=== PATIENT | male | born 2000 | race Two or more races ===

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

== ENCOUNTER 2022-01-04 13:31 | Inpatient (IN) | payer MEDICAID, SELFPAY ==
[2022-01-04 13:32] VITALS: BP 155/93; PULSE 117; RESP 18; TEMP 36.4; O2SAT 100; BMI 23.6
--- NOTE | 2022-01-04 13:49 | EDS_ITS ---
HPI History of Present Illness Chief Complaint: Substance Abuse Narrative Narrative: 21-year-old male presenting for detox from fake Percocet. He states he does not believe his fentanyl because has had fentanyl before and it was a lot stronger. He cannot be sure however. He says he does not do heroin. He only does this pill. He denies other drugs or alcohol. He states he had nausea and generalized fatigue. He also complains of insomnia and wakes up every 5 minutes. PFSH PFSH Medical History Substance abuse Vapes nicotine containing substance Medical History no medical history Home Medications NK 01/04/22 [History Last Taken Unknown] Allergy/AdvReac Type Severity Reaction Status Date / Time No Known Allergies Allergy Verified 01/04/22 13:33 Social History Smoking Status: Never smoker ROS ROS ED ROS Narrative Generalized fatigue Constitutional Constitutional ED: Denies chills or fever(s) Eyes Eyes: Denies blurry vision or diplopia ENT ENT ED: Denies rhinorrhea or sore throat Cardiovascular Cardiovascular: Denies chest pain or palpitations Respiratory/Chest Respiratory/Chest: Denies cough or dyspnea Gastrointestinal Gastrointestinal: Reports nausea and vomiting Genitourinary Genitourinary ED: Denies dysuria or urinary frequency Integumentary Denies abscess or rash Neurologic Neurologic: Denies headache(s), paresthesias or weakness Psychiatric Psychiatric: Denies anxiety or depression EXAM Physical Exam Const Vital Signs: 01/04/22 13:32 Temperature 97.5 F L Temperature Source Temporal Pulse Rate 117 H Respiratory Rate 18 Blood Pressure 155/93 H Blood Pressure Mean 113 Pulse Ox 100 Oxygen Delivery Method Room Air Positive well nourished General Appearance ED: NAD; Negative for pallor HEENT Reports moist mucous membranes atraumatic Eyes PERRL and EOMs intact bilaterally Chest Wall inspection of chest normal and palpation of chest normal Resp normal respiratory effort and clear to auscultation bilaterally Neuro oriented x3 Sensorium / Orientation: alert Psych mental status grossly normal and thought process normal Skin General Skin Exam: Negative for jaundice or pallor MDM MDM MDM Narrative Medical decision making narrative: Patient presenting for detox. He believes when he is taken is an opioid he is unsure if it is fentanyl. He does not use heroin specifically. He does not drink alcohol. Patient states his symptoms are insomnia, nausea/vomiting, fatigue. CBC and CMP are unremarkable. EtOH negative. Urine drug screen positive for cannabinoids. Patient discussed with hospitalist for admission for opioid detox. Impression: 1. Opioid abuse 2. Request for opioid use Lab Data Labs: Laboratory Results - last 24 hr 01/04/22 01/04/22 01/04/22 14:04 14:04 14:04 WBC 8.7 RBC 4.86 Hgb 14.7 Hct 40.5 MCV 83.3 MCH 30.2 MCHC 36.3 H RDW Std Deviation 37.4 RDW Coeff of Chelsey 12.3 Plt Count 294 MPV 10.7 Immature Gran % (Auto) 0.300 Neut % (Auto) 87.7 H Lymph % (Auto) 9.7 L [place] % (Auto) 2.2 Eos % (Auto) 0.0 Baso % (Auto) 0.1 Absolute Neuts (auto) 7.6 Absolute Lymphs (auto) 0.84 Nucleated RBC % 0 Sodium 136 Potassium 3.5 Chloride 104 Carbon Dioxide 23.0 Anion Gap 9 BUN 16 Creatinine 1.05 Estim Creat Clear Calc 119.52 Est GFR (MDRD) Af Amer 115 Est GFR (MDRD) Non-Af 95 BUN/Creatinine Ratio 15.2 Glucose 140 H Calcium 9.2 Total Bilirubin 0.60 AST 19 ALT 41 Alkaline Phosphatase 103 Total Protein 8.3 H Albumin 4.4 Globulin 3.9 Albumin/Globulin Ratio 1.1 Urine Opiates Screen Urine Methadone Screen Ur Barbiturates Screen Ur Phencyclidine Scrn Ur Amphetamines Screen U Methamphetamin-MDMA U Benzodiazepines Scrn Urine Cocaine Screen U Cannabinoids Screen Ur Drug Screen Comment Ethyl Alcohol 3.0 01/04/22 14:11 WBC RBC Hgb Hct MCV MCH MCHC RDW Std Deviation RDW Coeff of Chelsey Plt Count MPV Immature Gran % (Auto) Neut % (Auto) Lymph % (Auto) [place] % (Auto) Eos % (Auto) Baso % (Auto) Absolute Neuts (auto) Absolute Lymphs (auto) Nucleated RBC % Sodium Potassium Chloride Carbon Dioxide Anion Gap BUN Creatinine Estim Creat Clear Calc Est GFR (MDRD) Af Amer Est GFR (MDRD) Non-Af BUN/Creatinine Ratio Glucose Calcium Total Bilirubin AST ALT Alkaline Phosphatase Total Protein Albumin Globulin Albumin/Globulin Ratio Urine Opiates Screen NEGATIVE Urine Methadone Screen NEGATIVE Ur Barbiturates Screen NEGATIVE Ur Phencyclidine Scrn NEGATIVE Ur Amphetamines Screen NEGATIVE U Methamphetamin-MDMA NEGATIVE U Benzodiazepines Scrn NEGATIVE Urine Cocaine Screen NEGATIVE U Cannabinoids Screen POSITIVE H Ur Drug Screen Comment Ethyl Alcohol Discharge Plan Triage Chief Complaint: Substance Abuse ED Provider: Yves Phillips Dx/Rx/DC Orders Prescriptions: No Action NK RF: 0 Primary Care Provider: Kerry Perez
--- NOTE | 2022-01-04 14:16 | CM.ED ---
DONNIE Note Referral Source: [facility] Referral Reason: SUSIE FIELDS met with patient in his room. Patient gave verbal consent for this gag writer to speak to him in the presence of his mother in the room. Patient said that he is at the hospital for withdrawal and detox. Patient said that he is withdrawing from fake Percocet. Patient said that he thought they were real Percocet. SW asked patient why he feels he was taking fake percocet and patient said because of how he was feeling in regards to detox. Patient's mother said that patient had also said that there was fake percocet being sold. Patient reports last use was 1 1/2 days ago. Patient reports that he used 3-4 10's a day. Patient's mother reports patient has been using for over a year. Patient has no current AOD counselor or treatment. Patient reports that this is his first detox or treatment experience. Patient said that he was advised of the rules of the [facility] program and was in agreement with the rules. DONNIE called Esteban Baig and left voice mail message for her advising of admission. Plan: SUSIE SAUCEDA
[2022-01-04 14:17] LABS: Absolute Lymphocyte Count 0.84 X10^3/uL (0.83-4.51); Absolute Neutrophil Count 7.6 X10^3/uL (2.0-7.7); Basophil# 0.01 X10^3/uL; Basophil% 0.1 % (0-1); Hematocrit 40.5 % (40-54); Hemoglobin 14.7 g/dL (13.0-16.5); Lymphocyte # 0.84 X10^3/ul (0.83-4.51); Lymphocyte % 9.7 % (19-41); Mean Corp Hgb Conc 36.3 g/dL (32-36); Mean Corpuscular Hgb 30.2 pg (27.0-32.0); Mean Corpuscular Volume 83.3 fL (80-94); Mean Platelet Vol. 10.7 fl (6.2-12.0); Monocyte# 0.19 X10^3/uL; Monocyte% 2.2 % (0-10); NRBC Flagged by Analyzer 0 % (0-5); Neutrophil # 7.59 X10^3/uL (2.7-7.7); Neutrophil % 87.7 % (47-70); Platelet Count 294 K/mm3 (150-450); RBC Distribution Width CV 12.3 % (11.6-14.6); RBC Distribution Width SD 37.4 fl (35.1-43.9); Red Blood Count 4.86 M/mm3 (4.6-6.2); White Blood Count 8.7 K/mm3 (4.4-11.0)
[2022-01-04 14:30] LABS: ALB/GLOB Ratio 1.1 RATIO (0.9-2.4); AST(SGOT) 19 U/L (15-37); Alanine Aminotransfer ALT/SGPT 41 U/L (16-61); Albumin, Serum 4.4 g/dL (3.2-5.0); Alkaline Phosphatase 103 U/L (45-117); Anion Gap 9 (5-15); BUN 16 mg/dL (7-18); BUN/Creat Ratio 15.2 RATIO (10-20); Calcium,Total 9.2 mg/dL (8.5-10.1); Chloride 104 mmol/L (98-107); Creatinine, Serum 1.05 mg/dL (0.70-1.30); EST Glomerular Filtration Rate 95 mL/min (>60); Est Glom Filt Rate - Afr Amer 115 mL/min (>60); Estimated Creatinine Clearance 119.52 ml/min; Globulin 3.9 g/dL (2.2-4.2); Glucose 140 mg/dL (74-106); Potassium 3.5 mmol/L (3.5-5.1); Protein, Total 8.3 g/dL (6.4-8.2); Sodium Level 136 mmol/L (136-145)
[2022-01-04 14:54] LABS: Amphetamine Urine VISTA NEGATIVE (<1000 ng/mL); Barbiturate Urine VISTA NEGATIVE (< 200 ng/mL); Benzodiazepine Urine VISTA NEGATIVE (< 200 ng/mL); Cocaine Urine VISTA NEGATIVE (< 300 ng/mL); Ecstacy Urine VISTA NEGATIVE (< 500 ng/mL); Methadone Urine VISTA NEGATIVE (< 300 ng/mL); PCP Urine VISTA NEGATIVE (< 25 ng/mL); THC Urine VISTA POSITIVE (< 50 ng/mL); Vista UDS pH Range 6
[2022-01-04 15:57] VITALS: BP 133/79; PULSE 88; RESP 17; TEMP 36.8; O2SAT 98
--- NOTE | 2022-01-04 16:01 | PCM.HP.STD ---
[facility] - General General Date of Admission: 01/04/22 Date of Service: 01/04/22 Chief Complaint: Opiate detox HPI Narrative NACHO PEPPER, is a 21 M who presented to emergency department was [facility] on 01/04/2022 requesting opiate detox. The patient uses street obtained opiates that he takes 4 to 5 tablets daily. He states he has been doing this for approximately 1 year. He is unclear exactly what substances in these opiate tablets. He is never used any other form of drugs other than marijuana. He has never had a history of IV drug use. He states his current symptoms are nausea and vomiting, diarrhea, anxiety, insomnia, and myalgias. He states his last use was approximately 1.5 days ago. He is never gone through detox before but he does state he feels miserable. His vital signs in emergency department were overall unremarkable other than a slightly elevated blood pressure which I suspect is related to his withdrawal. His CBC was unremarkable. His CMP was unremarkable. His tox screen was only positive for cannabis. He signed [facility] paperwork and will be admitted to [facility] for opiate detox. [facility] Medical History Substance abuse Vapes nicotine containing substance Medical History no medical history Home Medications NK 01/04/22 [History Last Taken Unknown] Allergy/AdvReac Type Severity Reaction Status Date / Time No Known Allergies Allergy Verified 01/04/22 13:33 no significant family history no surgical history Social History (Updated 01/04/22 @ 16:[address] Yesika Potts, DO) Smoking Status: Current every day smoker tobacco type: e-cigarettes alcohol intake: current details: Rarely substance use type: marijuana and opiates ROS Constitutional Constitutional: Reports chills and malaise; Denies anorexia, change in weight, fatigue, fever(s), night sweats, weakness or other Eyes Eyes: Denies blurry vision, change in eye color, change in vision, discharge from eye(s), double vision, erythema, eye pain, loss of vision or other ENT HEENT: Denies abnormal hearing, dysphagia, ear pain, epistaxis, headache(s), hearing loss, nasal congestion, nasal discharge, post nasal drip, sinus pressure, sore throat or other Cardiovascular Cardiovascular: Denies chest pain, claudication, dyspnea on exertion, edema, lightheadedness, orthopnea, palpitations, paroxysmal nocturnal dyspnea, rapid heart rate, syncope or other Respiratory/Chest Respiratory/Chest: Denies cough, dyspnea, excessive phlegm production, hemoptysis, productive cough, shortness of breath at rest, shortness of breath with exertion, wheezing or other Gastrointestinal Gastrointestinal: Reports diarrhea, nausea and vomiting; Denies abdominal pain, coffee ground emesis, constipation, dyspepsia, hematemesis, hematochezia, loose stools, melena or other Genitourinary Genitourinary: Denies burning urination, difficulty urinating, dysuria, hematuria, nocturia, urinary frequency, urinary hesitancy, urinary incontinence, urinary urgency or other Musculoskeletal Musculoskeletal: Reports myalgias; Denies arthralgias, back pain, joint pain, joint stiffness, joint swelling, neck pain or other Neurologic Neurologic: Denies abnormal gait, abnormal speech, confusion, disequilibrium, dizziness, focal weakness, headache(s), numbness, paresthesias, seizure-like activity, seizures, syncope, tingling, tremor(s) or other Psychiatric Psychiatric: Reports anxiety; Denies depression, homicidal ideation, suicidal ideation or other Endocrine Endocrinology: Denies change in body appearance, cold intolerance, excessive sweating, heat intolerance, polydipsia, polyuria or other Hematologic/Lymphatic Hematologic/Lymphatic: Denies anemia, easy bleeding, easy bruising, lymphadenopathy or other Allergic/Immunologic Allergic/Immunologic: Denies rhinitis, hives, eczemia, asthma or other Vital Signs Vital Signs Vital Signs: 01/04/22 13:32 01/04/22 15:57 Temperature 97.5 F L 98.3 F Temperature Source Temporal Temporal Pulse Rate 117 H 88 Respiratory Rate 18 17 Blood Pressure 155/93 H 133/79 H Blood Pressure Mean 113 97 Pulse Ox 100 98 Oxygen Delivery Method Room Air Room Air Weight Weight: 77 kg Body Mass Index (BMI) 23.6 Physical Exam Const alert, oriented x3, no apparent distress, average body habitus, healthy appearing and well nourished Constitutional Narrative: Young -[place]ian male lying in right side-lying in bed, appears nontoxic but uncomfortable with withdrawal symptoms General Appearance: cooperative HEENT normocephalic, head/scalp atraumatic, hearing grossly normal bilaterally and moist oral mucous membranes Resp normal respiratory effort, no retractions, no use of accessory muscles and clear to auscultation bilaterally Auscultation: Negative for crackles, rales, rhonchi or wheezes Cardio regular rate, regular rhythm, S1 normal heart sound, S2 normal heart sound, no murmurs, no rub, no gallops, no clicks and no JVD GI normal to inspection, nondistended, normoactive bowel sounds, soft to palpation, non-tender and non-distended; Negative for hepatosplenomegaly Extremity no clubbing, cyanosis or edema Peripheral Pulses: Yes pulses 2+ throughout Skin no rashes or lesions noted, no wounds, skin turgor normal, no jaundice, no petechiae and no mottling Neuro oriented x3, CN's II-XII intact bilaterally, moves all extremities and no focal motor deficits Sensorium / Orientation: awake and alert Speech: speech normal Motor Exam: strength 5/5 throughout Psych affect normal Mood & Affect: anxious Results Lab / Micro Data Result Diagrams: 01/04/22 14:04 01/04/22 14:04 Labs: Laboratory Results - last 24 hr 01/04/22 14:04: WBC 8.7, RBC 4.86, Hgb 14.7, Hct 40.5, MCV 83.3, MCH 30.2, MCHC 36.3 H, RDW Std Deviation 37.4, RDW Coeff of Chelsey 12.3, Plt Count 294, MPV 10.7, Immature Gran % (Auto) 0.300, Neut % (Auto) 87.7 H, Lymph % (Auto) 9.7 L, [place] % (Auto) 2.2, Eos % (Auto) 0.0, Baso % (Auto) 0.1, Absolute Neuts (auto) 7.6, Absolute Lymphs (auto) 0.84, Nucleated RBC % 0 01/04/22 14:04: Ethyl Alcohol 3.0 01/04/22 14:04: Sodium 136, Potassium 3.5, Chloride 104, Carbon Dioxide 23.0, Anion Gap 9, BUN 16, Creatinine 1.05, Estim Creat Clear Calc 119.52, Est GFR (MDRD) Af Amer 115, Est GFR (MDRD) Non-Af 95, BUN/Creatinine Ratio 15.2, Glucose 140 H, Calcium 9.2, Total Bilirubin 0.60, AST 19, ALT 41, Alkaline Phosphatase 103, Total Protein 8.3 H, Albumin 4.4, Globulin 3.9, Albumin/Globulin Ratio 1.1 01/04/22 14:11: Urine Opiates Screen NEGATIVE, Urine Methadone Screen NEGATIVE, Ur Barbiturates Screen NEGATIVE, Ur Phencyclidine Scrn NEGATIVE, Ur Amphetamines Screen NEGATIVE, U Methamphetamin-MDMA NEGATIVE, U Benzodiazepines Scrn NEGATIVE, Urine Cocaine Screen NEGATIVE, U Cannabinoids Screen POSITIVE H, Ur Drug Screen Comment Assessment & Plan Assessment/Plan (1) Opiate withdrawal: PLAN: Acute opiate withdrawal -Last use was 1.5 days ago -Takes street but tablets but unclear what the substance or dosing is -Patient is having significant withdrawal symptoms -Start buprenorphine taper -Supportive medications -180 consult Tobacco abuse -Patient vapes intermittently -Will make nicotine patch available if needed -Recommend cessation THC abuse -Recommend cessation DVT prophylaxis -Low risk -Early ambulation protocol CODE STATUS -Full code Charges/Coding Visit Charges Inpatient E&M: 51030 Init Hosp L2
[2022-01-04 16:46] VITALS: BMI 23.2
[2022-01-04 17:00] VITALS: BP 140/84; PULSE 72; RESP 16; TEMP 37; O2SAT 98
[2022-01-04] MEDS: Methocarbamol 750 MG Tablet 1500 MG PO (17:08)
[2022-01-04] MEDS: hydrOXYzine PAM 25 MG Capsule 50 MG PO (17:08)
[2022-01-04] MEDS: Ondansetron 8 MG Tablet PO (17:08)
[2022-01-04] MEDS: Dicyclomine 10 MG Capsule 20 MG PO (17:08)
[2022-01-04] MEDS: Buprenorphine HCl 2 MG TAB.SUBL SL (17:09)
[2022-01-04 21:03] VITALS: BP 132/74; PULSE 64; RESP 18; TEMP 36.6; O2SAT 99
[2022-01-04] MEDS: Gabapentin 300 MG Capsule PO (21:13)
[2022-01-04] MEDS: traZODone 100 MG Tablet PO (21:13)
[2022-01-04] MEDS: cloNIDine HCl 0.1 MG Tablet PO (22:22)
--- NOTE | 2022-01-04 22:56 | NURSING ---
Spoke with patients mother to give update.
[2022-01-05 01:13] VITALS: BP 112/73; PULSE 64; RESP 16; TEMP 36.7; O2SAT 99
[2022-01-05] MEDS: Buprenorphine HCl 2 MG TAB.SUBL SL ×3 (01:17→16:56)
[2022-01-05] MEDS: hydrOXYzine PAM 25 MG Capsule 50 MG PO (01:18)
[2022-01-05 04:52] VITALS: BP 122/75; PULSE 63; RESP 14; TEMP 36.7; O2SAT 98
--- NOTE | 2022-01-05 07:32 | PN.HOSP_ITS ---
Objective Data Objective Data Vital Signs: Vital Signs Temp Pulse Resp BP Pulse Ox 98.1 F 63 14 122/75 H 98 01/05/22 04:52 01/05/22 04:52 01/05/22 04:52 01/05/22 04:52 01/05/22 04:52 Oxygen Delivery Method Room Air Weight: 75.659 kg Body Mass Index (BMI) 23.2 Lab / Micro Data Result Diagrams: 01/04/22 14:04 01/04/22 14:04 Labs: Laboratory Results - last 24 hr 01/04/22 14:04: WBC 8.7, RBC 4.86, Hgb 14.7, Hct 40.5, MCV 83.3, MCH 30.2, MCHC 36.3 H, RDW Std Deviation 37.4, RDW Coeff of Chelsey 12.3, Plt Count 294, MPV 10.7, Immature Gran % (Auto) 0.300, Neut % (Auto) 87.7 H, Lymph % (Auto) 9.7 L, [place] % (Auto) 2.2, Eos % (Auto) 0.0, Baso % (Auto) 0.1, Absolute Neuts (auto) 7.6, Absolute Lymphs (auto) 0.84, Nucleated RBC % 0 01/04/22 14:04: Ethyl Alcohol 3.0 01/04/22 14:04: Sodium 136, Potassium 3.5, Chloride 104, Carbon Dioxide 23.0, Anion Gap 9, BUN 16, Creatinine 1.05, Estim Creat Clear Calc 119.52, Est GFR (MDRD) Af Amer 115, Est GFR (MDRD) Non-Af 95, BUN/Creatinine Ratio 15.2, Glucose 140 H, Calcium 9.2, Total Bilirubin 0.60, AST 19, ALT 41, Alkaline Phosphatase 103, Total Protein 8.3 H, Albumin 4.4, Globulin 3.9, Albumin/Globulin Ratio 1.1 01/04/22 14:11: Urine Opiates Screen NEGATIVE, Urine Methadone Screen NEGATIVE, Ur Barbiturates Screen NEGATIVE, Ur Phencyclidine Scrn NEGATIVE, Ur Amphetamines Screen NEGATIVE, U Methamphetamin-MDMA NEGATIVE, U Benzodiazepines Scrn NEGATIVE, Urine Cocaine Screen NEGATIVE, U Cannabinoids Screen POSITIVE H, Ur Drug Screen Comment
--- NOTE | 2022-01-05 07:44 | PN.HOSP_ITS ---
Subjective Subjective Patient is a 21-year-old gentleman with history of polysubstance abuse admitted with acute opioid withdrawal Objective Data Objective Data Vital Signs: Vital Signs Temp Pulse Resp BP Pulse Ox 98.1 F 63 14 122/75 H 98 01/05/22 04:52 01/05/22 04:52 01/05/22 04:52 01/05/22 04:52 01/05/22 04:52 Oxygen Delivery Method Room Air Weight: 75.659 kg Body Mass Index (BMI) 23.2 Lab / Micro Data Result Diagrams: 01/04/22 14:04 01/04/22 14:04 Labs: Laboratory Results - last 24 hr 01/04/22 14:04: WBC 8.7, RBC 4.86, Hgb 14.7, Hct 40.5, MCV 83.3, MCH 30.2, MCHC 36.3 H, RDW Std Deviation 37.4, RDW Coeff of Chelsey 12.3, Plt Count 294, MPV 10.7, Immature Gran % (Auto) 0.300, Neut % (Auto) 87.7 H, Lymph % (Auto) 9.7 L, [place] % (Auto) 2.2, Eos % (Auto) 0.0, Baso % (Auto) 0.1, Absolute Neuts (auto) 7.6, Absolute Lymphs (auto) 0.84, Nucleated RBC % 0 01/04/22 14:04: Ethyl Alcohol 3.0 01/04/22 14:04: Sodium 136, Potassium 3.5, Chloride 104, Carbon Dioxide 23.0, Anion Gap 9, BUN 16, Creatinine 1.05, Estim Creat Clear Calc 119.52, Est GFR (MDRD) Af Amer 115, Est GFR (MDRD) Non-Af 95, BUN/Creatinine Ratio 15.2, Glucose 140 H, Calcium 9.2, Total Bilirubin 0.60, AST 19, ALT 41, Alkaline Phosphatase 103, Total Protein 8.3 H, Albumin 4.4, Globulin 3.9, Albumin/Globulin Ratio 1.1 01/04/22 14:11: Urine Opiates Screen NEGATIVE, Urine Methadone Screen NEGATIVE, Ur Barbiturates Screen NEGATIVE, Ur Phencyclidine Scrn NEGATIVE, Ur Amphetamines Screen NEGATIVE, U Methamphetamin-MDMA NEGATIVE, U Benzodiazepines Scrn NEGATIVE, Urine Cocaine Screen NEGATIVE, U Cannabinoids Screen POSITIVE H, Ur Drug Screen Comment Physical Exam Narrative GENERAL: cooperative HEENT: Atraumatic; EYES; Anicteric, Normal Conjunctiva NECK; supple, normal thyroid, RESPIRATORY: Diminished to auscultation CARDIOVASCULAR: Regular S1 S2, GI: soft, normoactive bowel sounds, : No Renal angle tenderness; EXTREMITIES: No edema, no clubbing, MUSCULOSKELETAL: no muscle wasting NEURO: Awake; no lateralizing signs. SKIN: No Rash PSYCH; Flat affect Assessment & Plan Assessment/Plan (1) Opiate withdrawal: PLAN: Patient is a 21-year-old gentleman with history of polysubstance abuse admitted with acute opioid withdrawal 1. Acute opiate withdrawal -patient has been admitted to regular nursing floor where he is currently being managed with buprenorphine taper 2. THC abuse ?Counseled on cessation 3. Tobacco dependence - Counseled on cessation, offered nicotine patch for tobacco cravings 4. DVT prophylaxis ?Low risk did encourage ambulation Charges/Coding Visit Charges Inpatient E&M: 46110 Subs Hosp L2
[2022-01-05 09:11] VITALS: BP 125/82; PULSE 67; RESP 16; TEMP 36.7; O2SAT 99
[2022-01-05 12:22] VITALS: BP 120/71; PULSE 66; RESP 16; TEMP 36.9; O2SAT 99
--- NOTE | 2022-01-05 12:57 | ADDICTION ---
This specification writer met with PT to conduct ASAM, MSE, AUDIT, DUDIT assessments and to plan for d/c. PT A+Ox4 and participated actively. All assessments completed and placed in PT's chart. PT plans to f/u with individual counselor at [facility] for follow-up counseling services. PT did not indicate a need for transportation post d/c from [facility].
[2022-01-05 16:50] VITALS: BP 129/84; PULSE 76; RESP 16; TEMP 37.3; O2SAT 99
[2022-01-05 20:43] VITALS: BP 120/70; PULSE 60; RESP 16; TEMP 36.7; O2SAT 98
[2022-01-05] MEDS: traZODone 100 MG Tablet PO (20:48)
[2022-01-06 00:32] VITALS: BP 124/65; PULSE 60; RESP 14; TEMP 36.6; O2SAT 97
[2022-01-06] MEDS: Buprenorphine HCl 2 MG TAB.SUBL SL ×3 (00:36→15:57)
[2022-01-06 06:26] VITALS: BP 127/72; PULSE 63; RESP 14; TEMP 36.6; O2SAT 98
--- NOTE | 2022-01-06 07:24 | PCM.PN.HOSP ---
Subjective Subjective Patient seen, symptoms significantly improved. Patient requested discharge. Has a follow-up appointment as outpatient with 180 Objective Data Objective Data Vital Signs: Vital Signs Temp Pulse Resp BP Pulse Ox 97.8 F 63 14 127/72 H 98 01/06/22 06:26 01/06/22 06:26 01/06/22 06:26 01/06/22 06:26 01/06/22 06:26 Oxygen Delivery Method Room Air Weight: 75.659 kg Body Mass Index (BMI) 23.2 Intake & Output: Intake and Output for Last 24 Hours 01/04/22 01/05/22 01/06/22 23:59 23:59 23:59 Intake Total 600 / 600 Balance 600 / 600 Lab / Micro Data Result Diagrams: 01/04/22 14:04 01/04/22 14:04 Physical Exam Narrative GENERAL: cooperative HEENT: Atraumatic; EYES; Anicteric, Normal Conjunctiva NECK; supple, normal thyroid, RESPIRATORY: Diminished to auscultation CARDIOVASCULAR: Regular S1 S2, GI: soft, normoactive bowel sounds, : No Renal angle tenderness; EXTREMITIES: No edema, no clubbing, MUSCULOSKELETAL: no muscle wasting NEURO: Awake; no lateralizing signs. SKIN: No Rash PSYCH; Flat affect Assessment & Plan Assessment/Plan (1) Opiate withdrawal: PLAN: Patient is a 21-year-old gentleman with history of polysubstance abuse admitted with acute opioid withdrawal 1. Acute opiate withdrawal -patient has been admitted to regular nursing floor where he is currently being managed with buprenorphine taper -01/06/2022; Patient seen, symptoms significantly improved. Patient requested discharge. Has a follow-up appointment as outpatient with 2. THC abuse ?Counseled on cessation 3. Tobacco dependence - Counseled on cessation, offered nicotine patch for tobacco cravings 4. DVT prophylaxis ?Low risk did encourage ambulation Charges/Coding Visit Charges Inpatient E&M: 03535 Subs Hosp L2
[2022-01-06 08:47] VITALS: BP 134/69; PULSE 70; RESP 16; TEMP 36.7; O2SAT 98
--- NOTE | 2022-01-06 09:07 | PCM.DC.SUM ---
Providers Date of Admission: 01/04/22 Primary Care Physician: JA Chin Reason For Visit: OPIATE DETOX Diagnosis Discharge Diagnosis (1) Opiate withdrawal: Status: Acute Code(s): F11.23 - Opioid dependence with withdrawal Medications at Discharge Home Medications NK 01/04/22 Hospital Course Summary of Care Provided Hospital Course: Patient is a 21-year-old gentleman with history of polysubstance abuse admitted with acute opioid withdrawal 1. Acute opiate withdrawal -patient has been admitted to regular nursing floor where he is currently being managed with buprenorphine taper -01/06/2022; Patient seen, symptoms significantly improved. Patient requested discharge. Has a follow-up appointment as outpatient with 2. THC abuse ?Counseled on cessation 3. Tobacco dependence - Counseled on cessation, offered nicotine patch for tobacco cravings 4. DVT prophylaxis ?Low risk did encourage ambulation Physical Exam Narrative GENERAL: cooperative HEENT: Atraumatic; EYES; Anicteric, Normal Conjunctiva NECK; supple, normal thyroid, RESPIRATORY: Diminished to auscultation CARDIOVASCULAR: Regular S1 S2, GI: soft, normoactive bowel sounds, : No Renal angle tenderness; EXTREMITIES: No edema, no clubbing, MUSCULOSKELETAL: no muscle wasting NEURO: Awake; no lateralizing signs. SKIN: No Rash PSYCH; Flat affect Weight / BMI Weight Weight: 75.659 kg Body Mass Index (BMI) 23.2 ABG / Lab / Microbiology Data Result Diagrams: 01/04/22 14:04 01/04/22 14:04 D/C Instructions Discharge Diet: No restrictions Discharge Activity: Return to Normal Activity Call your doctor if you observe: Fever of 101 or Higher, Shortness of breath, Fainting spells and Chest pain Meaningful Use Info Meaningful Use Diagnoses (Choose all that apply): None applicable Discharge Plan Admission Admit Date/Time: 01/04/22 15:47 Attending Provider: Branden Aguilar Primary Care Provider: Kerry Perez Discharge Orders/Prescriptions Prescriptions: No Action NK RF: 0 Referrals / Follow Up: Kerry Perez NP-C [Primary Care Provider] - In 1 Week Disposition Disposition (needs filled in before D/C Order can be placed): Home, Self Care Charges/Coding Visit Charges Inpatient E&M: 40964 Disch Hosp
[2022-01-06 14:17] VITALS: BP 129/74; PULSE 64; RESP 16; TEMP 36.4; O2SAT 99
== END 2022-01-06 16:09 | disposition home or self-care (01) | DRG 773 ==
LOC: ED 14:33 → MS3 16:15
PROVIDERS: Admitting Provider Internal Medicine; Emergency Provider Student in an Organized Health Care Education/Training Program; PCP Nurse Practitioner Family; Visit Provider Internal Medicine
DX: F11.23 Opioid dependence with withdrawal (principal); F12.10 Cannabis abuse, uncomplicated; F17.290 Nicotine dependence, other tobacco product, uncomplicated
CPT/HCPCS: 36415; 80053; 80307; 82077; 85025; 99251; 99283; 99406; G0463

== ENCOUNTER 2024-08-10 21:57 | Emergency (ER) | payer MEDICAID, SELFPAY ==
[2024-08-10 21:58] VITALS: BP 164/106; PULSE 115; RESP 20; TEMP 36.1; O2SAT 98; BMI 26.3
[2024-08-10] MEDS: Ibuprofen 600 MG Tablet PO (23:01)
--- NOTE | 2024-08-10 23:10 | RAD_ITS ---
EXAM: XR RIGHT KNEE COMPLETE, 4 OR MORE VIEWS CLINICAL INDICATION: Injury/Pain TECHNIQUE: Four or more views of the right knee. COMPARISON: No relevant prior studies available. FINDINGS: BONES/JOINTS: Unremarkable. No acute fracture. No subluxation. Normal alignment. Preservation of the joint space. No sclerotic or destructive changes observed. SOFT TISSUES: Unremarkable. No soft tissue swelling or gas. No radiopaque foreign body. RAD/Knee 4 or More Views IMPRESSION: Negative right knee x-rays. Electronically Signed: Schuyler Santo MD at 23:35 EDT ,
--- NOTE | 2024-08-10 23:18 | EDS_ITS ---
HPI History of Present Illness Chief Complaint: Lower Extremity Injury Informant: patient Narrative Narrative: Patient is a 24-year-old male with no sniffing past medical history presenting with right knee pain. Patient was playing wrestling with a body yesterday when he was kicked on the inside of his knee and his knee went outwards. He had immediate pain. Initially did have some numbness but that has resolved. He felt a pop. He is continue to have pain throughout the day today so he decided to come in to have it evaluated further. He feels that his knee is swollen. Denies any numbness or tingling at this time. Denies any other injuries. 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 PFSH PFS Medical History Substance abuse Vapes nicotine containing substance Home Medications ?Medication ?Instructions ?Recorded ?Last Taken ?Type NK 01/04/22 Unknown History Allergy/AdvReac Type Severity Reaction Status Date / Time No Known Allergies Allergy Verified 08/10/24 21:58 Social History Smoking Status: Current every day smoker tobacco type: e-cigarettes alcohol intake: current details: Rarely substance use type: marijuana and opiates ROS ROS ED Constitutional Constitutional ED: Denies chills or fever(s) Musculoskeletal Musculoskeletal: Reports other Details: Right knee pain, swelling Integumentary Denies Abrasions or rash Neurologic Neurologic: Denies paresthesias or weakness Hematologic/Lymphatic Hematologic/Lymphatic: Denies easy bleeding or easy bruising EXAM Physical Exam Const Vital Signs: 08/10/24 21:58 Temperature 97 F L Temperature Source Temporal Pulse Rate 115 H Respiratory Rate 20 H Blood Pressure 164/106 H Blood Pressure Mean 125 Pulse Ox 98 Oxygen Delivery Method Room Air Positive well nourished and well developed General Appearance ED: well developed and NAD HEENT Reports moist mucous membranes Chest Wall inspection of chest normal and palpation of chest normal Resp normal respiratory effort and clear to auscultation bilaterally Cardio regular rate, regular rhythm and no murmurs Cardio Narrative: 2+ right DP and PT pulse Extremity normal to inspection Extremity Narrative: Mild effusion present of the right knee. No short arc range of motion pain. No obvious deformity. Normal extensor mechanism. Normal Lopez test and compartments are soft of the calf and the quadricep muscles. Patient has increased pain with palpation along the medial joint line of the knee and pain with varus stress but I do not appreciate a significant laxity. No laxity with anterior posterior drawer test appreciated. Neuro oriented x3, moves all extremities and no sensory deficits noted Sensorium / Orientation: alert Motor Exam: Negative for general weakness Psych mental status grossly normal Skin no wounds MDM MDM MDM Narrative Medical decision making narrative: Patient is evaluated for injury to his right knee. Differential includes knee sprain, meniscal injury, ligamentous injury, distal femur fracture and proximal tibial fracture. Patient given Motrin in the ER. X-ray of the knee reviewed by myself does not show any acute fracture or dislocation. Patient given Joni wrap, crutches and outpatient orthopedics follow-up. Counseled to alternate ibuprofen and Tylenol for pain. Counseled on RICE therapy. He verbalizes agreement and understands plan. Discharged home in stable condition. Radiography Diagnostic Testing: Clinical Impression(s) from Imaging Studies Knee X-Ray 08/10/24 23:10 IMPRESSION: Negative right knee x-rays. Electronically Signed: Schuyler Santo MD at 23:35 EDT , Discharge Plan Triage Chief Complaint: Lower Extremity Injury ED Provider: Madai Hatch Dx/Rx/DC Orders Clinical Impression: Injury of knee, right Instructions: ED Knee Pain of Uncertain Cause, ED Knee Sprain Prescriptions: No Action NK Primary Care Provider: Kerry Perez Referrals: Kerry Perez NP-C [Primary Care Provider] - Dejan Bello MD [Med Staff - Active Staff] - 3-5 Days if not improving Activity Restrictions/Additional Instructions: Alternate ibuprofen and Tylenol at home for pain. Practice RICE therapy (rest, ice, compression (with Joni wrap) and elevation). You been given referral for orthopedics. As we discussed this could be a sprain of the knee, meniscal injury or ligamentous injury of the knee. Print Language: Vietnamese Disposition Disposition: Home, Self Care Discharge Date/Time: 08/10/24 23:39
== END 2024-08-10 23:39 | disposition home or self-care (01) ==
PROVIDERS: Emergency Provider Emergency Medicine; PCP Nurse Practitioner Family; Visit Provider Emergency Medicine
DX: S89.91XA Unspecified injury of right lower leg, initial encounter (principal); F12.90 Cannabis use, unspecified, uncomplicated; F17.290 Nicotine dependence, other tobacco product, uncomplicated; Y93.72 Activity, wrestling
CPT/HCPCS: 73564; 99283